=== PATIENT | female | born 1955 | race Caucasian/White ===

== ENCOUNTER → 2019-06-21 09:49 | Outpatient (CLI) | payer OTHER ==
--- NOTE | ~2019-06-21 | ST ---
PATIENT:SPENSER FUCHS MEDICAL RECORD: [id number] SEX: F LOCATION:[facility] ORDER #: ADMISSION DATE: 06/21/19 AGE OF PATIENT: 63 REFERRING PHYSICIAN: INTERPRETING PHYSICIAN: NIKO CARROLL MD DATE OF SERVICE: 06/21/2019 PROCEDURE: Treadmill stress test. Baseline ECG is normal. Exercised for 5 minutes of Girma protocol, maximum heart rate 114 beats per minute, less than 85% of max predicted. No ECG changes of ischemia. No symptoms of ischemia. Chest pressure was reported with exercise. No arrhythmias noted. IMPRESSION: Submaximal stress test with symptoms suspicious for angina. 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
== END | disposition home or self-care (01) ==
LOC: D.HCCARDIO 09:49
PROVIDERS: ATTEND Internal Medicine Interventional Cardiology
DX: I20.9 Angina pectoris, unspecified (principal)

== ENCOUNTER 2019-10-20 13:42 | Emergency (ER) | payer OTHER ==
[~2019-10-20] VITALS: Ht 162.6 cm; Wt 85.9 kg
[2019-10-20 13:59] VITALS: Ht 162.6 cm; Wt 85.9 kg
[2019-10-20] MEDS ORDERED: CYCLOBENZAPRINE10 MG PO (14:35)
[2019-10-20 15:55] VITALS: BP 161/45
== END 2019-10-20 15:55 | disposition home or self-care (01) ==
LOC: D.ER 13:42
DX: M54.5 Low back pain (principal); M48.00 Spinal stenosis, site unspecified; I10 Essential (primary) hypertension

== ENCOUNTER → 2019-11-24 09:18 | Outpatient (CLI) | payer OTHER ==
[2019-10-20 13:59] VITALS: BMI 32.5
[~2019-11-24 09:18] MED LIST: CYCLOBENZAPRINE10 MG PO
== END | disposition home or self-care (01) ==
LOC: D.CT 09:18
PROVIDERS: ATTEND Family Medicine
DX: R31.21 Asymptomatic microscopic hematuria (principal)